=== PATIENT | female | born 1960 | race Two or more races ===

== ENCOUNTER 2018-03-02 09:40 | Outpatient (CLI) | payer OTHER | END 2018-03-02 09:43 | disposition home or self-care (01) | LOC: MAMO-SONO 09:40 | DX: M15.8 Other polyosteoarthritis (principal) ==

== ENCOUNTER 2018-06-06 10:43 | Outpatient (CLI) | payer OTHER | END 2018-06-06 10:51 | disposition home or self-care (01) | LOC: RAD 501 10:43 | DX: M25.551 Pain in right hip (principal); M25.552 Pain in left hip ==

== ENCOUNTER 2018-07-19 11:03 | Outpatient (CLI) | payer OTHER | END 2018-07-19 16:17 | disposition home or self-care (01) | LOC: RAD 501 11:03 | DX: M19.042 Primary osteoarthritis, left hand (principal); M70.62 Trochanteric bursitis, left hip ==

== ENCOUNTER → 2018-09-07 | Outpatient (CLI) | payer OTHER | END | disposition home or self-care (01) | LOC: RAD 501 09:16 | DX: M46.1 Sacroiliitis, not elsewhere classified (principal); M15.8 Other polyosteoarthritis; M25.551 Pain in right hip; M25.552 Pain in left hip ==

== ENCOUNTER 2018-12-08 15:09 | Outpatient (CLI) | payer OTHER | END 2018-12-08 15:16 | disposition home or self-care (01) | LOC: RAD 501 15:09 | DX: M54.5 Low back pain (principal) ==

== ENCOUNTER 2019-11-02 14:40 | Outpatient (CLI) | payer OTHER | END 2019-11-03 08:20 | disposition home or self-care (01) | LOC: RAD 14:40 | DX: S93.491A Sprain of other ligament of right ankle, initial encounter (principal) ==

== ENCOUNTER → 2020-03-07 | Outpatient (CLI) | payer OTHER | END | disposition home or self-care (01) | LOC: SONOGRAMA 08:48 | PROVIDERS: ATTEND Internal Medicine Endocrinology, Diabetes & Metabolism | DX: E04.1 Nontoxic single thyroid nodule (principal) ==

== ENCOUNTER → 2020-03-15 | Outpatient (CLI) | payer OTHER | END | disposition home or self-care (01) | LOC: SONOGRAMA 12:30 → MAMO-SONO 14:45 | PROVIDERS: ATTEND Internal Medicine Endocrinology, Diabetes & Metabolism | DX: R19.09 Other intra-abdominal and pelvic swelling, mass and lump (principal) ==

== ENCOUNTER 2020-03-25 07:43 | Outpatient (CLI) | payer OTHER | END 2020-03-25 07:50 | disposition home or self-care (01) | LOC: SONOGRAMA 07:43 | PROVIDERS: ATTEND Pathology Anatomic Pathology & Clinical Pathology | DX: E04.1 Nontoxic single thyroid nodule (principal) ==

== ENCOUNTER → 2020-10-04 | Outpatient (CLI) | payer OTHER | END | disposition home or self-care (01) | LOC: SONOGRAMA 10:27 | PROVIDERS: ATTEND Internal Medicine Endocrinology, Diabetes & Metabolism | DX: E04.1 Nontoxic single thyroid nodule (principal) ==

== ENCOUNTER 2021-05-14 08:00 | Outpatient (CLI) | payer OTHER | END 2021-05-14 08:30 | disposition home or self-care (01) | LOC: PPH VACUNA 08:00 | PROVIDERS: ATTEND Emergency Medicine Pediatric Emergency Medicine | DX: Z23 Encounter for immunization (principal) ==

== ENCOUNTER 2021-09-18 15:31 | Outpatient (CLI) | payer OTHER | END 2021-09-18 15:32 | disposition home or self-care (01) | LOC: RAD 15:31 | PROVIDERS: ATTEND Physical Medicine & Rehabilitation | DX: L40.52 Psoriatic arthritis mutilans (principal); M19.041 Primary osteoarthritis, right hand; M19.042 Primary osteoarthritis, left hand ==

== ENCOUNTER 2021-11-20 06:54 | Outpatient (CLI) | payer OTHER | END 2021-11-20 13:55 | disposition home or self-care (01) | LOC: SONOGRAMA 06:54 | PROVIDERS: ATTEND Obstetrics & Gynecology Gynecology | DX: R31.9 Hematuria, unspecified (principal); N20.0 Calculus of kidney; R31.21 Asymptomatic microscopic hematuria; R93.41 Abnormal radiologic findings on diagnostic imaging of renal pelvis, ureter, or bladder ==

== ENCOUNTER 2021-12-17 07:16 | Outpatient (CLI) | payer OTHER | END 2021-12-17 13:09 | disposition home or self-care (01) | LOC: TOM 07:16 | PROVIDERS: ATTEND Urology | DX: R31.21 Asymptomatic microscopic hematuria (principal) ==

== ENCOUNTER 2022-02-24 15:22 | Outpatient (CLI) | payer OTHER | END 2022-02-24 15:40 | disposition home or self-care (01) | LOC: RAD 15:22 | PROVIDERS: ATTEND Surgery Surgery of the Hand | DX: M15.0 Primary generalized (osteo)arthritis (principal) ==

== ENCOUNTER 2022-12-16 07:37 | Outpatient (CLI) | payer OTHER | END 2022-12-16 09:00 | disposition home or self-care (01) | LOC: SONOGRAMA 07:37 | PROVIDERS: ATTEND Internal Medicine Endocrinology, Diabetes & Metabolism | DX: E04.1 Nontoxic single thyroid nodule (principal); E04.9 Nontoxic goiter, unspecified ==

== ENCOUNTER → 2023-08-27 | Outpatient (CLI) | payer OTHER | END | disposition home or self-care (01) | LOC: RAD 06:47 | PROVIDERS: ATTEND Orthopaedic Surgery | DX: M25.532 Pain in left wrist (principal) ==

== ENCOUNTER 2024-04-07 15:15 | Outpatient (CLI) | payer OTHER | END 2024-04-07 15:40 | disposition home or self-care (01) | LOC: RAD 15:15 | PROVIDERS: ATTEND Surgery Surgery of the Hand | DX: M79.641 Pain in right hand (principal) ==